=== PATIENT | male | born 1990 | race African-American/Black ===

== ENCOUNTER 2019-04-18 11:47 | Emergency (ER) | payer SELFPAY ==
[2019-04-18 12:06] VITALS: BP 143/79
--- NOTE | 2019-04-18 12:23 | ER Document Report ---
HPI - HPI Time Seen by Provider: 04/18/19 12:16 Pain Level: 0 Notes: Patient is a 28-year-old male with no significant past medical history presents complaining of infected hair follicle to his left chin area for the past couple days. Patient has not noticed any purulent discharge. Denies drug allergies. He is able to eat and drink without difficulty. He is urinating normally. He has no other concerns or complaints. No history of MRSA. Denies any headache, fever, neck pain, URI, sore throat, chest pain, palpitations, syncope, cough, shortness of breath, wheeze, dyspnea, abdominal pain, nausea/vomiting/diarrhea, urinary retention, dysuria, hematuria, or rash. - ROS Systems Reviewed and Negative: Yes All other systems reviewed and negative Past Medical History - Social History Smoking Status: Current Every Day Smoker Family History: Reviewed & Not Pertinent Patient has suicidal ideation: No Patient has homicidal ideation: No Vertical Provider Document - CONSTITUTIONAL Agree With Documented VS: Yes Notes: PHYSICAL EXAMINATION: GENERAL: Well-appearing, well-nourished and in no acute distress. HEAD: Atraumatic, normocephalic. EYES: Pupils equal round and reactive to light, extraocular movements intact, sclera anicteric, conjunctiva are normal. ENT: Nares patent and without discharge. oropharynx clear without exudates. No tonsilar hypertrophy or erythema. Moist mucous membranes. NECK: Normal range of motion, supple without lymphadenopathy LUNGS: Breath sounds clear to auscultation bilaterally and equal. No wheezes rales or rhonchi. HEART: Regular rate and rhythm without murmurs, rubs, gallops. ABDOMEN: Soft, nontender, nondistended abdomen. No guarding, no rebound. Normal bowel sounds present. No CVA tenderness bilaterally. Musculoskeletal: FROM to passive/active. Strength 5+/5. Extremities: No cyanosis, clubbing, or edema b/l. Peripheral pulses 2+. Capillary refill less than 3 seconds. NEUROLOGICAL: Cranial nerves grossly intact. Normal speech, normal gait. Normal sensory, motor exams PSYCH: Normal mood, normal affect. SKIN: Left chin: there is a dime-sized indurated area w/o fluctuance or streaks noted to the left chin. + tenderness. Needle I&D showed no purulence. - INFECTION CONTROL TRAVEL OUTSIDE OF THE [place] IN LAST 30 DAYS: No Course - Re-evaluation Re-evalutation: 04/18/19 12:27 Patient is an afebrile, well-hydrated, 28-year-old male who presents to the emergency department with an infected hair follicle of his left chin. Vitals are acceptable without significant tachycardia, tachypnea, or hypoxia. PE is otherwise unremarkable. Patient is nontoxic-appearing and is tolerating p.o. without difficulty. Incision and drainage was performed with needle to further evaluate without any complications, no purulence. Wound dressing was placed and wound instructions reviewed. Wound culture was obtained. No further labs or imaging warranted. Pt aware things can worsen which may warrant complete I&D in the future. Low suspicion for any sepsis, meningitis, SJS, or other systemic emergent condition at this time. Patient to monitor symptoms for any acute changes and seek medical attention if so. Recheck with your PCM in 2-3 days. Consider consult with the general surgeon. Return to the ED with any worsening/concerning symptoms as reviewed. Patient is in agreement. - Vital Signs Vital signs: Temp Pulse Resp BP Pulse Ox 97.9 F 98 18 143/79 H 100 04/18/19 12:05 04/18/19 12:05 04/18/19 12:05 04/18/19 12:05 04/18/19 12:05 Discharge - Discharge Clinical Impression: Hair follicle infection Condition: Stable Disposition: HOME, SELF-CARE Instructions: Cephalexin ([facility]), Trimethoprim-Sulfa ([facility]) Additional Instructions: Keep the skin clean Wash with soap and water Tylenol/ibuprofen if needed Triple antibiotic ointment daily Take medication as directed Monitor for any worsening symptoms Recheck with your PCM in 2-3 days Return to the ED with any worsening symptoms and/or development of fever, headache, chest pain, palpitations, syncope, shortness of breath, trouble breathing, abdominal pain, n/v/d, abscess, purulent discharge, red streaks, worsening swelling, or other worsening symptoms that are concerning to you. Prescriptions: Sulfamethoxazole/Trimethoprim [Bactrim Ds Tablet] 1 each PO BID #20 tablet Cephalexin Monohydrate [Keflex 500 mg Capsule] 500 mg PO TID #30 capsule Forms: Elevated Blood Pressure Referrals: ANGELO SAEZ MD [ACTIVE STAFF] - Follow up as needed
== END 2019-04-18 12:29 | disposition home or self-care (01) ==
LOC: ER 11:47
DX: L73.9 Follicular disorder, unspecified (principal); F17.200 Nicotine dependence, unspecified, uncomplicated
CPT/HCPCS: 99282